=== PATIENT | male | born 1965 | race Caucasian/White ===

== ENCOUNTER 2018-03-12 08:47 | Inpatient (IN) ==
[2018-03-12] MEDS ORDERED: *HR* Morphine Sulfate/PF 10 MG/10 ML AMPUL ONE (09:09)
[2018-03-12] MEDS ORDERED: Lidocaine -MPF 1% 5 ML AMPUL ONE (09:09)
[2018-03-12] MEDS ORDERED: *HR* Rocuronium Bromide 50 MG/5 ML VIAL ONE (09:10)
[2018-03-12] MEDS ORDERED: Lidocaine -MPF 4% 5 ML AMPUL ONE (09:10)
[2018-03-12] MEDS ORDERED: Lidocaine -MPF 2% 2 ML VIAL ONE (09:10)
[2018-03-12] MEDS ORDERED: *HR* Succinylcholine 200 MG/10 ML VIAL IVP ONE (09:10)
[2018-03-12] MEDS ORDERED: *HR* Midazolam HCl 2 MG/2 ML VIAL ONE (09:11)
[2018-03-12] MEDS ORDERED: *HR* FentaNYL (PF) 100 MCG/2 ML VIAL ONE (09:11)
[2018-03-12] MEDS ORDERED: *HR* Propofol 200 MG/20 ML VIAL IVP ONE (09:11)
--- NOTE | 2018-03-12 09:14 | Anesthesia Evaluation PreOp ---
Date of Encounter: 03/12/18 Time of Encounter: 09:13 - Past History Planned Operation: Left total shoulder, reverse ball and socket Cardiac History: HTN, Hyperlipidemia Pulmonary History: Denies Any Significant HX, Other (chews tobacco) PASSPORT SUPPORT MANAGER History: Denies Any Significant HX Other Medical History: Diabetes Type II (does not use insulin) Anesthesia History: No Prior Anesthetic Complications Medications and Allergies Allergy/AdvReac Type Severity Reaction Status Date / Time acetaminophen [From Percocet] Allergy Hallucinati Verified 03/12/18 09:33 ng Oxycodone [From Percocet] Allergy Hallucinati Verified 03/12/18 09:33 ng Penicillins Allergy See Verified 03/12/18 09:33 Comments - Meds/Allergy Pre-op Review Medications Reviewed: Yes Allergies Reviewed: Yes Beta Blockers on Current Med List: No Anesthesia Results - Labs Laboratory Tests 03/05/18 03/05/18 03/05/18 09:50 09:50 09:50 WBC 6.8 Hgb 15.8 Hct 44.4 Plt Count 175 PT 10.0 INR 0.9 APTT 29.6 Sodium 134 L Potassium 3.8 Chloride 105 Carbon Dioxide 21 L BUN 19 Creatinine 0.76 Est GFR ( Amer) > 60 Est GFR (Non-Af Amer) > 60 BUN/Creatinine Ratio 25 Est Mean Plasma Glucose Hemoglobin A1c 03/05/18 09:50 WBC Hgb Hct Plt Count PT INR APTT Sodium Potassium Chloride Carbon Dioxide BUN Creatinine Est GFR ( Amer) Est GFR (Non-Af Amer) BUN/Creatinine Ratio Est Mean Plasma Glucose 177 Hemoglobin A1c 7.8 H - Imaging EKG: report reviewed, image reviewed (SR) Anesthesia Exam Last Vital Signs Temp 98.8 F 03/12/18 09:13 Pulse 85 03/12/18 09:13 Resp 18 03/12/18 09:13 BP 137/99 03/12/18 09:13 Pulse Ox 95 03/12/18 09:13 Weight: 217 lbs NPO (# of Hours): > 8 hrs - HEENT Pupil (Motor): Pupils equal, EOMI Mallampati: III Teeth: Missing, Poor dentition Oral Opening: Greater than 3 - PASSPORT SUPPORT MANAGER LOC: Oriented - Cardiac Rhythm: Regular Murmur: None - Pulmonary Breath Sounds: bilateral Clear Respiratory Effort: Symmetrical Anesthesia Assess/Plan ASA Score: 2 Modified Katrin Scale for Level of Consciousness: Cooperative, oriented, and tranquil Anesthetic Plan: General, Regional Monitoring Plan: Standard Monitors Recovery Plan: PACU
[2018-03-12] MEDS ORDERED: Clindamycin 900 MG/50 ML 900 MG/50 ML IV.SOLN IVPB ONE (09:30)
[2018-03-12] MEDS ORDERED: Ringers Solution, Lactated 1,000 ML IVC SCH ×2 (09:30→13:02)
[2018-03-12] MEDS ORDERED: ROPIVACAINE HCL/PF 0.5% 30 ML VIAL ONE (09:32)
[2018-03-12] MEDS ORDERED: Bupivacaine/Clonidine Syringe 1 EACH SYRINGE ONE (09:32)
--- NOTE | 2018-03-12 09:37 | History & Physical Report ---
Date of Encounter: 03/12/18 Time of Encounter: 09:37 24 Hour HP Update - Instructions Instructions: If the History and Physical is less than 30 days old and was completed prior to A.M. admission and or procedure and has NOT been updated on calendar day of procedure please complete this update prior to performing procedure. - Update Patient reports changes in Medical Condition: No Changes in examination, assessment, or condition: No Changes in Medication: No Preop tests/diagnostics Reviewed: Yes Surgery Remains Indicated: Yes Consent for Planned Operative Procedure(s) Verified: Yes - Pre-Operative Checklist Preoperative Checklist Indicated: No Prophylactic Antibiotic Ordered: Yes Is VTE Prophylaxis Indicated?: Yes
[2018-03-12] MEDS ORDERED: Ethanol\\Acetic Acid\\Na Ace\\Ben 1,000 ML IRRIG.SOLN IR ONE (09:58)
[2018-03-12] MEDS ORDERED: *HR* Promethazine 25 MG/ML VIAL IVP PRN ×2 (10:43→11:01)
[2018-03-12] MEDS ORDERED: *HR* HYDROmorphone (PF) 1 MG/ML SYRINGE IVP PRN ×2 (10:43→11:01)
--- NOTE | 2018-03-12 10:43 | Anesthesia Procedures ---
Date of Encounter: 03/12/18 Time of Encounter: 10:30 Procedures: Anesthesia - Nerve Block Procedure Date: 03/12/18 Time: 10:30 Allergies/Adv Reactions: TYLENOL, PCN,OXY Pre-op Diagnosis: LEFTTOTAL SHOULDER Surgical Procedure: LEFT SHOULDER ARTHRITIS Checklist: Correct Patient Identifier, Correct procedure, History checked Correct side: Left Blood Thinner: No Monitor Applied: EKG, BP, Pulse Oximetry Supplemental Oxygen via Nasal Cannula (L/min): 2 Sedation: Versed (mg): 2 Sedation: Fentanyl (mcg): 100 Indication: Post Op Analgesia Pre-op Neuro Deficits: No Block Type: Supraclavicular (ICB/SCP) Catheter placed: No Sterile Technique: Yes Ultrasound used: Yes Anatomy identified: Yes Visual spread of Local: Yes Neuro Stimulation: Yes Nerve Stimulator Range: 0.2 - 0.4 mA Blood on Needle Aspiration: No Smooth Injection of Local: Yes Pain with Injection of Local: No Prep: Chlorhexadine Needle: 22 x 50 mm Stimuplex Local: 0.25% Bupivicaine w/Clonidine 20 mcg/cc (ICB/SCP), Ropivacaine (0.5% +DECADRON 8MG ) Volume (cc): 50 Number of Attempts: 1 Complications: None/effective block Vitals: Vital Signs - Last 8 Hours Temp Pulse Resp BP Pulse Ox 03/12/18 10:30 84 15 139/97 100 03/12/18 10:09 80 13 128/93 99 03/12/18 09:13 98.8 F 85 18 137/99 95 Intake and Output 03/11/18 03/12/18 03/12/18 23:59 07:59 15:59 Other: Weight 217 kg Blood Glucose* 167 Patient Weight 03/12/18 23:59 Weight 217 kg
[2018-03-12] MEDS ORDERED: Ondansetron 4 MG/2 ML VIAL ONE (10:50)
[2018-03-12] MEDS ORDERED: Dexamethasone 4 MG/ML VIAL ONE (10:50)
[2018-03-12] MEDS ORDERED: *HR* PHENYLEPHRINE 1,000 MCG/10 ML SYRINGE IVP ONE (10:51)
[2018-03-12] MEDS ORDERED: EPHEDrine 50 MG/ML VIAL ONE (11:00)
[2018-03-12] MEDS ORDERED: *HR* OxyCODONE Immed Rel 5 MG TABLET PO PRN (11:01)
[2018-03-12] MEDS ORDERED: Ondansetron 4 MG/2 ML VIAL IVP ONE (11:01)
[2018-03-12] MEDS ORDERED: *HR* Labetalol 20 MG/4 ML SYRINGE IVP PRN (11:01)
[2018-03-12] MEDS ORDERED: *HR* Meperidine 25 MG/ML SYRINGE IVP PRN (11:01)
--- NOTE | 2018-03-12 11:38 | Orthopedic Operative Note ---
Date of procedure: 03/12/18 Pre-op diagnosis: Left shoulder cuff tear arthropathy Post-op diagnosis: same Procedure: Procedure: Total Shoulder Replacment Reverse, left Estimated blood loss: 100 cc Hardware: Metal and polyethylene replacement: Arthrex 28, +2 , 30 mm screw glenoid baseplate, 2 4.5 screws. 2 5.5 screw, 42+4 glenosphere, 11 apex humeral stem, poly insert 3 Exam Under anesthesia: Full motion no instability Procedural Notes: Grade 4 arthritic changes humeral head glenoid socket, tear supraspinatus tendon. Operative procedure: The patient was brought to the operating room and placed on the operating room table. After general anesthesia was administered the operative shoulder was examined. Findings were noted. The patient was placed in the modified beachchair position. All pressure points were padded appropriately. And the head was stabilized in the neutral position. The operative extremity was prepped and draped in the sterile surgical fashion. The patient received IV antibiotics prior to skin incision. A standard deltopectoral approach was made to the operative shoulder. Incision was made to the skin and subcutaneous tissue,hemo stasis was obtained with Bovie cautery. Using careful blunt dissection the cephalic vein was identified and mobilized medially. The deltopectoral interval was developed and the clavipectoral fascia was incised. The subscap was released off the lesser tuberosity and tagged with #2 FiberWire suture subscap was irreparable. The humerus was dislocated patient noted to have tear supraspinatus tendon, and the humeral cut was made along the anatomic neck. Grade 4 arthritic changes humeral head glenoid socket. Anterior and posterior Bankart retractors were placed to expose the glenoid. The glenoid guide was seated and the centering hole was made. It was reamed with the appropriate reamer. The 28 mm, +2, 30 mm screw, baseplate was seated and secured with (2) 4.5 screws and 2 5.5 screw. The baseplate was irrigated and dried and the 42+4 Glenosphere was seated and secured with the Craven taper. The Craven taper was tested and found to be secure the humerus was redislocated and prepared with the diaphyseal reamers, followed by a broaching process up to the appropriate size 11 apex in the patient's anatomic version. The metaphyseal reamer was then utilized. Trial reduction found the shoulder to be relocatable. Trial components were removed and 11 apex stem was impacted in place in the patient's anatomic version. Trial reduction found the shoulder to be relocatable and stable with the appropriate 3 Wendy Trial component was removed and the real implant was seated and secured the shoulder was reduced. The shoulder had excellent motion and excellent stability and no evidence of dislocation. The deep tissue was irrigated with pulse irrigation. The PA close the shoulder. The deltopectoral interval was closed with a running #1 PDS suture, subcutaneous tissue was irrigated and closed with 0 PDS suture, the skin was closed with Dermabond. The patient was placed in a sterile dressing, abduction brace and extubated. The patient was then transferred to the recovery room in stable condition. Anesthesia: GETA Surgeon: Jatin Rojas Was there an fiscal assistant present: No Estimated blood loss (cc): 100 Condition: stable Disposition: PACU
--- NOTE | 2018-03-12 12:34 | Anesthesia Evaluation Post Op ---
Date of Encounter: 03/12/18 Time of Encounter: 12:33 - Vital Signs Vital Signs: Vital Signs/O2 Sat/Glucose, Most Recent Temp Pulse Resp BP Pulse Ox 97.6 F 90 16 112/84 100 03/12/18 12:16 03/12/18 12:16 03/12/18 12:16 03/12/18 12:16 03/12/18 12:16 Blood Glucose* 157 - Lungs Lungs: Clear Ascult./Percussion - Airway Airway: Non-obstructed - Cardiovascular Regular Rate - Mental Status Mental Status: Alert & Oriented, Answers Appropriately - Pain Pain Scale: 0 Pain Scale used: Numeric (1 - 10) - Nausea Vomiting Nausea Vomiting: Not Present - Hydration Hydration: Tolerates oral liquids - Discharge PostOp Status: Transfer Patient to floor
[2018-03-12] MEDS ORDERED: Naloxone 0.4 MG/ML INJ IVP PRN (13:02)
[2018-03-12] MEDS ORDERED: Sennosides 8.6 MG TABLET PO PRN (13:02)
[2018-03-12] MEDS ORDERED: Acetaminophen 325 MG TABLET PO PRN (13:02)
[2018-03-12] MEDS ORDERED: D5% in Water 1,000 ML IVC PRN (13:02)
[2018-03-12] MEDS ORDERED: Ondansetron 4 MG/2 ML VIAL IVP PRN (13:02)
[2018-03-12] MEDS ORDERED: *HR* HYDROcodone/Acet 10/325 mg TABLET PO PRN (13:02)
[2018-03-12] MEDS ORDERED: Dextrose Gel 15 GM/37.5 ML TUBE PO PRN ×2 (13:02)
[2018-03-12] MEDS ORDERED: Insulin LISPRO 300 UNITS/3 ML VIAL SQ SCH ×2 (13:02→21:00)
[2018-03-12] MEDS ORDERED: Temazepam 15 MG CAPSULE PO PRN (13:02)
[2018-03-12] MEDS ORDERED: MOM Conc 10 ML UD.LIQ PO PRN (13:02)
[2018-03-12] MEDS ORDERED: *HR* Dextrose 50 % in Water (Syg) 50 ML SYRINGE IVP PRN (13:02)
[2018-03-12] MEDS ORDERED: *HR* HYDROcodone/Acet 5/325 mg TABLET PO PRN (13:02)
[2018-03-12 14:27] VITALS: BP 127/85
[2018-03-12] MEDS ORDERED: Clindamycin 900 MG/50 ML 900 MG/50 ML IV.SOLN IVPB SCH (16:00)
--- NOTE | 2018-03-12 16:04 | Discharge Summary ---
Orders not resulted at time of discharge: Pending orders 03/12/18 10:04 US anesthesia pain block [US] Routine 03/12/18 11:45 Surgical Pathology [PTH] Routine 03/13/18 04:00 Hemoglobin and Hematocrit [HEME] AM 0400 03/14/18 04:00 Hemoglobin and Hematocrit [HEME] AM 0400 Date of Encounter: 03/12/18 Time of Encounter: 15:58 - Discharge Diagnosis (1) Status post reverse total arthroplasty of left shoulder Priority: Primary Status: Acute Comments: Opsite dressing, leave intact until first post-operative visit. Zipline in place, plan to remove at post-operative day #14-16. If dressing becomes >50% saturated, contact office, remove dressing and place appropriate dressing in its place. Do not allow for dressing to get wet. Shoulder Precautions x 6 weeks. Apply cold therapy wrap 3-6x/day for 20 minutes at a time. Encourage ambulation throughout the day. Use Incentive spirometer 10x/hour. Elevate affected extremity above heart as tolerated. NWB to affected upper extremity x 6 weeks. Will remove brace at first post-operative appointment. OK to remove during PT/OT and Home exercises. (2) Rotator cuff arthropathy of left shoulder Priority: Primary Status: Acute (3) HTN (hypertension) Priority: Secondary Status: Acute Qualifiers: Hypertension type: essential hypertension Qualified Code(s): I10 - Essential (primary) hypertension (4) DMII (diabetes mellitus, type 2) Priority: Secondary Status: Chronic Qualifiers: Diabetes mellitus rn long term care insulin use: unspecified rn long term care insulin use status Diabetes mellitus complication status: with unspecified complications Qualified Code(s): E11.8 - Type 2 diabetes mellitus with unspecified complications - Hospital Course Hospital course: Mr. Tijerina is a 53 year old male status post Left TSRreverse- with a history ofpercocet allergy - given one dose of [place] in hospital . Patient had uneventful postoperative course. Stable for discharge. Patient seen at bedside, without complaints. A&O x 3 Afebrile, vital signs stable. Vital Signs Temp Pulse Resp BP Pulse Ox 03/12/18 13:30 98.4 F 97 18 127/85 97 03/12/18 12:36 97.3 F L 93 16 113/80 99 03/12/18 12:26 97.1 F L 90 16 118/82 99 03/12/18 12:16 97.6 F 90 16 112/84 100 03/12/18 12:06 91 18 128/91 100 03/12/18 11:56 97.3 F L 92 16 128/86 100 03/12/18 10:30 84 15 139/97 100 03/12/18 10:09 80 13 128/93 99 03/12/18 09:13 98.8 F 85 18 137/99 95 Intake and Output 03/12/18 03/12/18 03/12/18 07:59 15:59 23:59 Intake Total 50 / 50 Output Total 100 / 100 Balance -50 / -50 Intake: IV Fluids 50 / 50 Cleocin Premix 900 MG/50 ML 900 50 / 50 mg In 50 ml @ 100 mls/hr IVPB PREOP ONE Rx#:[id number] Output: Estimated Blood Loss 100 / 100 Other: # Voids 1 Weight 217 kg Blood Glucose* 256 Patient Weight 03/12/18 23:59 Weight 217 kg Labs reviewed. H/H - stable, asymptomatic Short CBC 03/12/18 Range/Units 12:18 Hgb 15.0 (12.9-16.9) g/dL Hct 42.5 (37.5-50.1) % Pain control: adequate Participating in PT. All questions and concerns addressed. Educated on use of incentive spirometer. Encouraged ambulation and proper hydration. Patient educated on post-operative restrictions and post-operative care. Assessment and plan: Continue with postoperative care Discharge plan: Home with OP discharge today. - Time Spent with Patient Total time spent providing and/or coordinating discharge services: - Discharge Medications Prescriptions: HYDROcodone/Acet 5/325 mg [[place] 5-325 mg] 1 tab PO Q6HR PRN 7 Days #28 tablet PRN Reason: Severe Pain Home Medications: HYDROcodone/Acet 5/325 mg [[place] 5-325 mg] 1 tab PO Q6HR PRN 7 Days #28 tablet 03/12/18 [Rx] Lisinopril 2.5 mg PO DAILY 03/12/18 [History] Meloxicam 15 mg PO DAILY 03/12/18 [History] Naproxen Sodium [Aleve] 440 mg PO QID PRN 03/12/18 [History] Omeprazole [PriLOSEC] 20 mg PO DAILY 03/12/18 [History] Rosuvastatin Calcium 10 mg PO DAILY 03/12/18 [History] Sitagliptin Phos/Metformin HCl [Janumet Xr 100-1,000 mg Tablet] 1 tab PO DAILY 03/12/18 [History] Allergies/Adverse Reactions: Allergy/AdvReac Type Severity Reaction Status Date / Time acetaminophen [From Percocet] Allergy Hallucinati Verified 03/12/18 09:33 ng Oxycodone [From Percocet] Allergy Hallucinati Verified 03/12/18 09:33 ng Penicillins Allergy See Verified 03/12/18 09:33 Comments Date of admission: 03/12/18 13:37 Primary care physician: Eduardo Kendall Consults: 03/12/18 13:02 Consult to Physical Therapy [CONS] Routine Comment: post shoulder surgery Reason for Consult: post shoulder surgery Does patient have active BEDREST order?: No Is patient medically & hemodynamically stable?: Yes RT Post Op Consult [CONS] Routine Labs on day of discharge: Labs from last 24 hours 03/12/18 09:11 POC Glucose 167 H - Impressions ITS Impressions Shoulder X-Ray 03/12/18 08:04 IMPRESSION: Expected postsurgical findings following left reverse total shoulder arthroplasty. No immediate complication. D/ / Maikel Rodriguez / Maikel Rodriguez Interpreting Provider: Maikel Rodriguez - Patient Status Disposition: Home, Self-Care Condition: Good Functional capacity at discharge: independent ambulation Overall status at discharge: patient is progressing back to baseline - Discharge Instructions Follow Up With: Stephany Beavers PAC [Physician School Resource Officer] - 03/20/18 10:45 am Eduardo Kendall [Primary Care Provider] - Additional Instructions: Discharge Instructions: Total Shoulder Please call [facility] ([phone]), your Primary Care Physician, or report to the Emergency Room if you have any of the following symptoms: Nausea, vomiting, fever greater that 101.5, swelling, chest pain, shortness of breath, increased pain/redness/drainage/odor for your incision site, numbness/tingling, or any other concerning symptoms. ACTIVITY: Always keep your arm in the sling. Do not raise your arm away from your body. Do not use your arm to help with getting in or out of bed. No weight bearing permitted. Only perform those exercises given to you by your therapist. Incentive Spirometer 10 times an hour. MEDICATIONS: Upon discharge resume your home medications. Take all the medications as prescribed. Take a stool softener if taking narcotic pain medications. Stool softeners are only effective if you drink enough fluids. Drink 6-8 glass of water or fluids a day, unless this is not allowed for another health problem. Despite using stool softeners, if you haven't had a bowel movement in 3 days, please switch to a gentle laxative. Gentle laxatives are sold over the counter. You should have a bowel movement within 24 hours, if not call the office. You will be discharged from the hospital with a prescription for pain medication. You are encouraged to decrease the use of narcotic pain medication as tolerated. Should you require a refill, please call the office. [facility] prescribes narcotic pain medication for only 4-6 weeks after surgery. If you require pain medication beyond this time period, you may be referred to your Primary Care Physician or to the Pain Clinic for further evaluation. Plan ahead for refills on pain medication as many narcotics either need to be picked up at the office or mailed. It is best to call 48-72 hours in advance of needing a prescription refill so you don't run out of medication. To help control the post-operative pain, you may take NSAIDs (Aleve,Advil, Motrin, Ibuprofen, Naprosyn) or Tylenol as prescribed on the bottle in addition to the pain medication. WOUND CARE: Leave the dressing on for 7-10 days. You may change the dressing if it becomes saturated greater than 50%. Do not get the dressing wet at anytime. Wash your hands with antibacterial soap, rinse and dry prior to any wound care. If you have yanet the visiting nurse or rehab facility can remove the stapes 10-14 days after surgery and place steri-strips across the wound. Leave the steri-strips in place until they fall off on their own. You may let water from the shower run on top of the steri-strips. If you do not have a visiting nurse or rehab facility, you will need to return to the office at 10-14 days for the yanet to be removed. If you have itching or redness around the dressing call the office. FOLLOW-UP: Please follow up with your surgeon in the orthopedic clinic, as scheduled
[2018-03-12] MEDS ORDERED: *HR* HYDROcodone/Acet 5/325 mg TABLET PO ONE (16:06)
[2018-03-12 16:17] LABS: Hematocrit 42.5 % (37.5-50.1)
[2018-03-12] MEDS ORDERED: *HR* Enoxaparin 30 MG/0.3 ML SYRINGE SQ SCH ×3 (18:00)
[2018-03-13] MEDS ORDERED: *HR* Metformin 500 MG TABLET PO SCH (08:00)
[2018-03-13] MEDS ORDERED: *HR* SitaGLIPtin 100 MG TABLET PO SCH (08:00)
[2018-03-13] MEDS ORDERED: NON-FORMULARY MEDICATION 1 EACH EACH (Sitagliptin Phos/Metformin Hcl [Janumet Xr 100-1,000 PO SCH (09:00)
== END 2018-03-12 17:37 | disposition home or self-care (01) | DRG 483 ==
LOC: SAMDAY 08:47 → 3NENU 13:37
PROVIDERS: ADMIT Orthopaedic Surgery; ATTEND Orthopaedic Surgery